=== PATIENT | female | born 1960 | race Caucasian/White ===

== ENCOUNTER 2017-11-30 09:50 | Emergency (ER) | payer MEDICAID | END 2017-11-30 11:28 | disposition home or self-care (01) | LOC: D.ER 09:50 | DX: J11.1 Influenza due to unidentified influenza virus with other respiratory manifestations (principal); F17.200 Nicotine dependence, unspecified, uncomplicated ==

== ENCOUNTER 2019-04-18 15:24 | Emergency (ER) | payer MEDICAID ==
[~2019-04-18] VITALS: Ht 170.2 cm; Wt 112.7 kg
[2019-04-18 15:29] VITALS: Ht 170.2 cm; Wt 112.7 kg
[2019-04-18 16:07] LABS: BASOPHILS 0.2 % (0-2); EOSINOPHILS 2.4 % (0-7); HEMATOCRIT 38.7 % (36.0-48.0); HEMOGLOBIN 12.8 g/dL (12-16); IMMATURE GRANULOCYTES 0.2 % (0-5); LYMPHOCYTES 28.1 % (15-50); MCH 28.8 pg (26.0-34.0); MCHC 33.1 g/dL (31.0-37.0); MCV 87.2 fL (80.0-100.0); MEAN PLATELET VOLUME 9.6 fL (7.4-10.4); MONOCYTES 8.1 % (2-11); PLATELET COUNT 245 10x3/uL (130-400); RBC 4.44 10x6/uL (4.00-5.40); RDW 14.9 % (11.5-14.5); WBC 8.4 10x3/uL (4.8-10.8)
[2019-04-18 16:24] LABS: ALBUMIN 3.6 g/dL (3.4-5.0); ANION GAP 13.2 mmol/L (8-16); BILIRUBIN - TOTAL 0.27 mg/dL (0.2-1.3); CALCIUM 8.7 mg/dL (8.5-10.1); POTASSIUM - SERUM 4.2 mmol/L (3.5-5.1); PROTEIN - SERUM 8.3 g/dL (6.4-8.2)
[2019-04-18] MEDS ORDERED: LISINOPRIL-HCT1 EAC4 PO (19:02)
[2019-04-18 21:08] VITALS: BP 138/69
== END 2019-04-18 21:13 | disposition home or self-care (01) ==
LOC: D.ER 15:24
PROVIDERS: Family Medicine
DX: I10 Essential (primary) hypertension (principal); R60.0 Localized edema; M25.562 Pain in left knee; M17.12 Unilateral primary osteoarthritis, left knee